=== PATIENT | male | born 1965 | race Two or more races ===

== ENCOUNTER 2025-02-13 12:15 | Inpatient (IN) | payer OTHER ==
[~2025-02-13] VITALS: Ht 165.1 cm; Wt 65.3 kg
[2025-02-13] MEDS ORDERED: COZAAR100 MG PO (12:59)
[2025-02-13 13:07] VITALS: BP 144/74
[2025-02-13 13:08] LABS: PH,URINE 5.5 (5.0-8.0); URINE APPEARANCE Clear; URINE BILIRRUBIN Negative (NEGATIVE); URINE BLOOD Negative; URINE COLOR Yellow; URINE GLUCOSE Negative (NEGATIVE); URINE KETONE Negative (NEGATIVE); URINE LEUKOCYTE Negative; URINE NITRATE Negative; URINE PROTEIN Negative (NEGATIVE); URINE UROBILINOGEN 0.2 E.U./dl
[2025-02-13 13:10] LABS: URINE BACTERIA 4.8 uL (0.0-1933)
[2025-02-13 13:12] LABS: URINE EPITHELIAL CELLS 0.7 uL (0.0-38.8); URINE WBC 0.7 uL (0.0-23.2)
[2025-02-13 13:27] LABS: CALCIUM 9.5 mg/dL (8.5-10.1); COVID-19 AG NEGATIVE (NEGATIVE); CREATININE SERUM 1.1 mg/dL (0.70-1.30); GFR 68.51; POTASSIUM 4.98 mEq/L (3.5-5.1)
[2025-02-13 13:29] LABS: INR < 0.93; PARTIAL THROMBOPLASTIN TIME 28.6 SECONDS (22.0-34.0); PROTHROMBIN TIME 10.1 SECONDS (9.0-11.5)
[2025-02-13 13:31] LABS: HEMATOCRIT 37.5 % (39.0-48.0); HEMOGLOBIN 12.7 g/dL (13-16.00); MEAN CELL VOLUME 98.4 fL (80.0-100.00); MEAN CORPUSCULAR HEMOGLOBIN 33.2 pg (27.00-32.0); MEAN CORPUSCULAR HGB CONC 33.7 g/dl (32.0-36.0); RED BLOOD COUNT 3.81 M/uL (4.00-6.00); RED CELL DISTRIBUTION WIDTH 13.1 % (11.5-14.5)
[2025-02-13 14:08] LABS: PLATELET COUNT 174 K/uL (150-450)
[2025-02-13 14:36] LABS: RH POSITIVE
[2025-02-18] MEDS ORDERED: CEFAZOLIN SODIUM 1,000 MG VIAL ONE ×2 (10:31→20:37)
[2025-02-18] MEDS ORDERED: ENOXAPARIN SODIUM 40 MG/0.4 ML SYRINGE SUBCUTANEO ONE (10:31)
[2025-02-18] MEDS ORDERED: BUPIVACAINE HCL/MPF 0.5% 30ML VIAL ONE (12:01)
[2025-02-18] MEDS ORDERED: SURGIFLO APPLICATOR 1 EACH APPL TOP ONE (13:31)
[2025-02-18] MEDS ORDERED: HEMOSTATIC MATRIX 1 KIT KIT TOP ONE (14:06)
[2025-02-18] MEDS ORDERED: SUGAMMADEX SODIUM 200 MG/2 ML VIAL IV ONE (18:00)
[2025-02-18] MEDS ORDERED: INSULIN LISPRO 1,000 UNIT/10 ML UNITS SUBCUTANEO PRN (18:15)
[2025-02-18] MEDS ORDERED: DEXTROSE 50 % IN WATER 0.5 G/ML DISP.SYRIN IV PRN (18:15)
[2025-02-18] MEDS ORDERED: MORPHINE SULFATE 4 MG/ML CARTRIDGE IV PRN (18:15)
[2025-02-18] MEDS ORDERED: ONDANSETRON HCL 2 MG/ML VIAL IV PRN (18:15)
[2025-02-18] MEDS ORDERED: OxyCODONE HCL/APAP UD (PERCOCET) PO PRN (18:15)
[2025-02-18] MEDS ORDERED: RINGERS SOLUTION,LACTATED 1,000 ML IV SCH (18:15)
[2025-02-18] MEDS ORDERED: FAMOTIDINE/PF 20 MG/2 ML VIAL ONE (20:37)
[2025-02-18] MEDS ORDERED: FAMOTIDINE/PF 20 MG/2 ML VIAL IV SCH (21:00)
[2025-02-18] MEDS ORDERED: BUDESONIDE 0.5 MG/2 ML AMPUL.NEB IH SCH (21:00)
[2025-02-18] MEDS ORDERED: CEFAZOLIN SODIUM 1,000 MG VIAL IV SCH (21:00)
[2025-02-18 21:30] VITALS: BP 114/72; O2SAT 89
[2025-02-18 22:40] VITALS: O2SAT 92
[2025-02-19] MEDS ORDERED: LEVALBUTEROL HCL 0.63 MG/3 ML SOLUTION IH SCH (01:00)
[2025-02-19] MEDS ORDERED: GABAPENTIN 300 MG CAPSULE PO SCH (01:00)
[2025-02-19 01:28] VITALS: BP 118/66; O2SAT 97
[2025-02-19 07:01] LABS: ALBUMIN 3.1 gm/dL (3.4-5.0); CALCIUM 8.6 mg/dL (8.5-10.1); CREATININE SERUM 1.14 mg/dL (0.70-1.30); GFR 65.75; PHOSPHOROUS 2.3 mg/dL (2.5-4.9); POTASSIUM 4.75 mEq/L (3.5-5.1)
[2025-02-19 07:02] LABS: HEMOGLOBIN 11.8 g/dL (13-16.00); MEAN CELL VOLUME 98.4 fL (80.0-100.00); MEAN CORPUSCULAR HEMOGLOBIN 34.1 pg (27.00-32.0); MEAN CORPUSCULAR HGB CONC 34.6 g/dl (32.0-36.0); RED BLOOD COUNT 3.45 M/uL (4.00-6.00); RED CELL DISTRIBUTION WIDTH 12.8 % (11.5-14.5)
[2025-02-19 07:58] LABS: PLATELET COUNT 88 K/uL (150-450)
[2025-02-19] MEDS ORDERED: ENOXAPARIN SODIUM 40 MG/0.4 ML SYRINGE SUBCUTANEO SCH (09:00)
[2025-02-19] MEDS ORDERED: LOSARTAN POTASSIUM 100 MG TABLET PO SCH (09:00)
[2025-02-19 10:16] LABS: HEMATOCRIT 31.1 % (39.0-48.0); HEMOGLOBIN 10.8 g/dL (13-16.00); MEAN CELL VOLUME 97.7 fL (80.0-100.00); MEAN CORPUSCULAR HEMOGLOBIN 34.1 pg (27.00-32.0); MEAN CORPUSCULAR HGB CONC 34.8 g/dl (32.0-36.0); RED BLOOD COUNT 3.18 M/uL (4.00-6.00); RED CELL DISTRIBUTION WIDTH 12.8 % (11.5-14.5)
[2025-02-19 10:29] VITALS: BP 139/77; O2SAT 98
[2025-02-19 12:44] LABS: MANUAL PLATELET COUNT 84
[2025-02-19 12:45] LABS: PLATELET COUNT 77 K/uL (150-450)
[2025-02-19 16:00] VITALS: BP 123/71; O2SAT 95
[2025-02-19] MEDS ORDERED: POLYETHYLENE GLYCOL 3350 17 GM BLIST.PACK PO SCH (17:00)
[2025-02-20] VITALS: BP 149/81; O2SAT 88
[2025-02-20 02:00] VITALS: BP 133/78; O2SAT 94
[2025-02-20] MEDS ORDERED: GUAIFEN/DEXTROMETHORPHAN/PE 10 ML BLIST.PACK PO SCH (06:00)
[2025-02-20 06:40] LABS: ABG PH 7.449 (7.35-7.45); ABG PO2 70.3 mmHg (80-100); ABG pCO2 39.3 mmHg (35-45); SaO2 94.8 %
[2025-02-20 06:41] LABS: BASE EXCESS 2.6 mmol/l; BICARBONATE 26.6 mmol/l (23-25); Tco2 27.8 mmol/l; allen test SATISFACTORY; mode VENTURY MASK; o2 40 %; puncture site RADIAL LEFT
[2025-02-20 07:29] LABS: HEMATOCRIT 28.6 % (39.0-48.0); MEAN CELL VOLUME 98.2 fL (80.0-100.00); MEAN CORPUSCULAR HGB CONC 34.9 g/dl (32.0-36.0); RED BLOOD COUNT 2.92 M/uL (4.00-6.00); RED CELL DISTRIBUTION WIDTH 12.8 % (11.5-14.5)
[2025-02-20 07:38] LABS: MEAN CORPUSCULAR HEMOGLOBIN 34.2 pg (27.00-32.0); PLATELET COUNT 68 K/uL (150-450)
[2025-02-20 08:00] VITALS: BP 158/87; O2SAT 99
[2025-02-20 11:01] LABS: PLATELET ESTIMATE DECREASED (NORMAL)
[2025-02-20] MEDS ORDERED: Cyanocobalamin/Mecobalamin 1 TAB.SL SL NR (12:00)
[2025-02-20] MEDS ORDERED: VITAMIN B COMPLEX 1 EACH PO NR (12:00)
[2025-02-20] MEDS ORDERED: VITAMIN B COMPLEX 1 EACH PO SCH (17:00)
[2025-02-20 17:35] VITALS: BP 121/71; O2SAT 100
[2025-02-21 00:49] VITALS: BP 164/93; O2SAT 99
[2025-02-21 08:00] VITALS: BP 156/80; O2SAT 98
[2025-02-21 08:02] LABS: HEMATOCRIT 27.3 % (39.0-48.0); HEMOGLOBIN 9.5 g/dL (13-16.00); MEAN CELL VOLUME 98.1 fL (80.0-100.00); MEAN CORPUSCULAR HEMOGLOBIN 34.1 pg (27.00-32.0); MEAN CORPUSCULAR HGB CONC 34.7 g/dl (32.0-36.0); RED BLOOD COUNT 2.78 M/uL (4.00-6.00); RED CELL DISTRIBUTION WIDTH 12.7 % (11.5-14.5)
[2025-02-21 08:04] LABS: PLATELET COUNT 71 K/uL (150-450)
[2025-02-21 08:25] LABS: MANUAL PLATELET COUNT 94
[2025-02-21] MEDS ORDERED: Cyanocobalamin/Mecobalamin 1 TAB.SL SL SCH (09:00)
[2025-02-21 16:12] VITALS: BP 160/80; O2SAT 97
[2025-02-22 01:33] VITALS: BP 157/82; O2SAT 97
[2025-02-22 07:36] LABS: HEMATOCRIT 30.1 % (39.0-48.0); HEMOGLOBIN 10.1 g/dL (13-16.00); MEAN CELL VOLUME 100.3 fL (80.0-100.00); MEAN CORPUSCULAR HEMOGLOBIN 33.8 pg (27.00-32.0); MEAN CORPUSCULAR HGB CONC 33.7 g/dl (32.0-36.0); RED CELL DISTRIBUTION WIDTH 12.5 % (11.5-14.5)
[2025-02-22 07:44] LABS: PLATELET COUNT 91 K/uL (150-450)
[2025-02-22 08:15] LABS: MANUAL PLATELET COUNT 138
[2025-02-22 08:26] LABS: ALBUMIN 2.8 gm/dL (3.4-5.0); ALKALINE PHOSPHATASE 61 U/L (50-136); ALT/SGPT 17 U/L (12-78); ANION GAP 11 (10.0-20.0); AST/SGOT 20 U/L (15-37); BILIRUBIN TOTAL 0.32 mg/dL (0.3-1.2); BILIRUBIN,CONJUGATED < 0.10 mg/dL (0.0-0.2); BILIRUBIN,UNCONJUGATED 0.22 mg/dL (0.0-0.6); BLOOD UREA NITROGEN 12 mg/dL (7-18); BUN CREA RATIO 12 (7.0-25.0); CALCIUM 9.2 mg/dL (8.5-10.1); CARBON DIOXIDE 28 mEq/L (21-32); CHLORIDE 109 mmol/L (98-107); CREATININE SERUM 1.03 mg/dL (0.70-1.30); GAMMA GLUTAMIL TRANSFERASE 25 U/L (15-85); GFR 73.92; GLUCOSE FASTING 99 mg/dL (65-100); OSMOLALITY SERUM 287 MOSM/KG (275-295); PHOSPHOROUS 2.9 mg/dL (2.5-4.9); POTASSIUM 4.36 mEq/L (3.5-5.1); SODIUM 144 mmol/L (136-145); TOTAL PROTEIN 6.4 gm/dL (6.4-8.2)
[2025-02-22] MEDS ORDERED: THIAMINE HCL 100 MG TABLET PO SCH (09:00)
[2025-02-22] MEDS ORDERED: PANTOPRAZOLE SODIUM 40 MG TABLET.DR PO SCH (09:00)
[2025-02-22] MEDS ORDERED: Cyanocobalamin/Mecobalamin 1 TAB.SL SL SCH (09:00)
[2025-02-22] MEDS ORDERED: SOD FERRIC GLUC COMPLX/SUCROSE 62.5 MG in 0.9 % SODIUM CHLORIDE 50 ML IV SCH (09:00)
[2025-02-22] MEDS ORDERED: ENALAPRILAT DIHYDRATE 1.25 MG/ML VIAL IV STA (09:04)
[2025-02-22] MEDS ORDERED: ENALAPRILAT DIHYDRATE 1.25 MG/ML VIAL IV PRN (09:30)
[2025-02-22] MEDS ORDERED: MAGNESIUM SULFATE IN WATER 50 ML IV NR (10:30)
== END 2025-02-22 13:50 | disposition home or self-care (01) | DRG 707 ==
LOC: CIR.AMB 12:15 → EDSTATUS 12:15 → SURH 02-17 12:15 → O/R 02-18 06:29 → SURH 02-18 19:07
PROVIDERS: Internal Medicine; Internal Medicine Geriatric Medicine; ADMIT Urology; ATTEND Urology
PROC: 8E0W4CZ Robotic Assisted Procedure of Trunk Region, Percutaneous Endoscopic Approach (ICD-10-PCS; 2025-02-18)
PROC: 07BC4ZZ Excision of Pelvis Lymphatic, Percutaneous Endoscopic Approach (ICD-10-PCS; 2025-02-18)
PROC: 0VT04ZZ Resection of Prostate, Percutaneous Endoscopic Approach (ICD-10-PCS; principal; 2025-02-18 07:00)
DX: C61 Malignant neoplasm of prostate (principal); D61.818 Other pancytopenia; I10 Essential (primary) hypertension; Z72.0 Tobacco use
CPT/HCPCS: 55866; 38571; S2900

== ENCOUNTER 2025-03-02 09:18 | Outpatient (CLI) | payer OTHER ==
[~2025-03-02 09:18] MED LIST: COZAAR100 MG PO
== END 2025-03-02 09:29 | disposition home or self-care (01) ==
LOC: TOM 09:18
PROVIDERS: ATTEND Urology
DX: C61 Malignant neoplasm of prostate (principal)
CPT/HCPCS: 72194; Q9965

== ENCOUNTER 2025-03-02 12:12 | Outpatient (CLI) | payer OTHER ==
[2025-03-02 13:13] LABS: HEMATOCRIT 31.2 % (39.0-48.0); HEMOGLOBIN 10.6 g/dL (13-16.00); MEAN CELL VOLUME 99.1 fL (80.0-100.00); MEAN CORPUSCULAR HEMOGLOBIN 33.8 pg (27.00-32.0); MEAN CORPUSCULAR HGB CONC 34.1 g/dl (32.0-36.0); PLATELET COUNT 267 K/uL (150-450); RED BLOOD COUNT 3.14 M/uL (4.00-6.00); RED CELL DISTRIBUTION WIDTH 12.9 % (11.5-14.5)
== END 2025-03-02 14:06 | disposition home or self-care (01) ==
LOC: LAB 12:12
PROVIDERS: ATTEND Urology
DX: C61 Malignant neoplasm of prostate (principal)